=== PATIENT | male | born 1955 | race Caucasian/White ===

== ENCOUNTER → 2017-12-16 | Outpatient (CLI) | payer BC, OTHER ==
[~2017-12-16] MED LIST: CIPRO500 MG PO; CYMBALTA60 MG PO; FLAGYL500 MG PO; PROTONIX40 M1 PO; XARELTO20 MG PO; ZOLOFT25 MG PO
== END ==
LOC: M.CT 09:50
DX: K40.90 Unilateral inguinal hernia, without obstruction or gangrene, not specified as recurrent (principal); K57.30 Diverticulosis of large intestine without perforation or abscess without bleeding; K76.0 Fatty (change of) liver, not elsewhere classified; M47.896 Other spondylosis, lumbar region; Z86.711 Personal history of pulmonary embolism

== ENCOUNTER → 2018-04-27 | Outpatient (CLI) | payer MEDICARE, OTHER ==
[2018-04-27 09:06] LABS: ALBUMIN 3.6 g/dL (3.4-5.0); DIRECT BILIRUBIN 0.1 mg/dL (<0.1-0.3); TOTAL BILIRUBIN 0.4 mg/dL (<0.1-1.0); TOTAL PROTEIN 7.3 g/dL (6.4-8.2)
== END ==
LOC: M.ULTRA 07:57
PROVIDERS: Nurse Practitioner Adult Health
DX: D73.89 Other diseases of spleen (principal); R74.8 Abnormal levels of other serum enzymes; Z90.49 Acquired absence of other specified parts of digestive tract

== ENCOUNTER 2018-07-29 14:51 | Emergency (ER) | payer MEDICARE, OTHER ==
[~2018-07-29] VITALS: Ht 188 cm; Wt 99.8 kg
[2018-07-29 15:44] LABS: ABSOLUTE BASOPHILS 0.1 thou/uL (0.0-0.2); ABSOLUTE EOSINOPHILS 0.1 thou/uL (0.0-0.7); ABSOLUTE LYMPHOCYTES 1.3 thou/uL (0.8-5.3); ABSOLUTE MONOCYTES 0.5 thou/uL (0.0-1.2); BASOPHILS 0.9 %; EOSINOPHILS 1.5 %; HEMATOCRIT 41.8 % (42.0-52.0); HEMOGLOBIN 14.3 gm/dL (14.0-18.0); LYMPHOCYTES 22.4 %; MCH 32.1 pg (26.0-34.0); MCHC 34.2 g/dL (28.0-37.0); MCV 93.7 fL (80.0-100.0); MONOCYTES 8.2 %; NUCLEATED RBCS 0 /100WBC; PLATELET COUNT* 218 thou/uL (150-400); RBC 4.46 mil/uL (4.50-6.00); RDW-CV 13.1 % (10.5-14.5); WBC 5.9 thou/uL (4.0-11.0)
[2018-07-29 15:51] LABS: ANION GAP 7 mmol/L (7-16); BUN 18 mg/dL (7-18); CALCIUM 8.8 mg/dL (8.5-10.1); CHLORIDE 106 mmol/L (98-107); CO2 29 mmol/L (21-32); CREATININE 1.3 mg/dL (0.6-1.3); GLUCOSE 132 mg/dL (70-99); POTASSIUM 3.9 mmol/L (3.5-5.1); SODIUM 142 mmol/L (136-145)
[2018-07-29 15:54] LABS: INR 1.2; PROTIME 11.8 Seconds (9.20-11.50)
[2018-07-29 16:02] LABS: ALBUMIN 3.5 g/dL (3.4-5.0); ALKALINE PHOSPHATASE 142 U/L (46-116); LIPASE 112 U/L (73-393); NT-PRO BRAIN NAT PEPTIDE 139 pg/mL (<300); SGOT 28 U/L (15-37); SGPT 45 U/L (30-65); TOTAL BILIRUBIN 0.5 mg/dL (<0.1-1.0); TOTAL PROTEIN 7.2 g/dL (6.4-8.2); TROPONIN-I LEVEL <0.06 ng/mL (<0.06)
[2018-07-29 19:42] VITALS: BP 154/86
--- NOTE | 2018-07-30 13:43 | EKG ---
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
== END 2018-07-29 19:43 | disposition home or self-care (01) ==
LOC: M.ERS 14:51
PROVIDERS: Personal Emergency Response Attendant
DX: R07.89 Other chest pain (principal); Z86.718 Personal history of other venous thrombosis and embolism; Z86.711 Personal history of pulmonary embolism; Z90.49 Acquired absence of other specified parts of digestive tract

== ENCOUNTER → 2018-12-15 | Outpatient (CLI) | payer MEDICARE, OTHER ==
[~2018-12-15] MED LIST changes: +CYMBALTA20 MG PO
--- NOTE | 2018-12-25 00:36 | SLEEP ---
[facility] [address] [place] [address] SLEEP STUDY REPORT Name: DARIONGENNARO SIDHU [id number] Admission: 12/15/18 Attend Phys: Sanjeev Riddle Discharge: Date of : 51 Report #: [id number] THIS REPORT FOR: //name// CC: Sumanth Comer DO This study has been reviewed in its entirety by a board certified sleep specialist DATE OF SERVICE: 12/15/2018 HOME SLEEP STUDY ATTENDING PHYSICIAN: Dr. Sumanth Comer. The patient is 63 years old who weighs 215 pounds with a BMI of 30.8. The patient's Onaka score was unknown. The patient underwent home sleep study performed at [facility]. Total recording time was 574 minutes. During the night study, the patient had 21 obstructive apneas, no mixed or central apneas and 236 hypopneas. The patient's apnea hypopnea index was 26.8 per hour. Supine sleep was not recorded. Nocturnal oximetry study revealed an average oxygen saturation of 93% and the lowest of 81%. 9 minutes were spent in an oxygen saturation of less than 90%. Mean heart rate 53 beats per minute with a maximum 83 beats per minute. IMPRESSION: 1. Moderate sleep apnea-hypopnea syndrome at an AHI of 26.8 per hour. 2. Nocturnal hypoxia secondary to obstructive sleep apnea. RECOMMENDATIONS: 1. The patient would benefit from treatment of sleep apnea with CPAP. This can be done as an AutoPAP home titration study versus an in-lab titration study. 2. Once the patient is optimally treated, then follow up in 4-6 weeks to assess compliance with treatment and to document clinical improvement. 3. Weight loss is strongly advised. 4. Avoid PUNCH OPERATOR depressants. 5. Cautioned regarding driving until symptoms of sleep apnea resolve with the use of CPAP. <ELECTRONICALLY SIGNED> By: lBue Hoyos MD 12/25/18 0036 2250 [id number] Hoyos MD /nt
== END ==
LOC: M.SLEEPLAB 08:54
DX: G47.33 Obstructive sleep apnea (adult) (pediatric) (principal); R09.02 Hypoxemia

== ENCOUNTER 2018-12-18 09:26 | Emergency (ER) | payer MEDICARE, OTHER ==
[~2018-12-18] VITALS: Ht 182.9 cm; Wt 98.4 kg
[~2018-12-18 09:26] MED LIST changes: -CYMBALTA20 MG PO
[2018-12-18] MEDS ORDERED: CYMBALTA20 MG PO (09:34)
[2018-12-18 09:45] LABS: ABSOLUTE BASOPHILS 0.1 thou/uL (0.0-0.2); ABSOLUTE EOSINOPHILS 0.1 thou/uL (0.0-0.7); ABSOLUTE LYMPHOCYTES 1.5 thou/uL (0.8-5.3); ABSOLUTE MONOCYTES 0.7 thou/uL (0.0-1.2); ABSOLUTE NEUTROPHILS 4.9 thou/uL (1.6-8.1); BASOPHILS 1.2 %; EOSINOPHILS 1.6 %; HEMATOCRIT 45.6 % (42.0-52.0); HEMOGLOBIN 15.3 gm/dL (14.0-18.0); LYMPHOCYTES 20.7 %; MCH 31.5 pg (26.0-34.0); MCHC 33.7 g/dL (28.0-37.0); MCV 93.6 fL (80.0-100.0); MONOCYTES 9.9 %; MPV 8.8 fl. (7.2-11.1); NUCLEATED RBCS 0 /100WBC; PLATELET COUNT* 232 thou/uL (150-400); POLYS 66.6 %; RBC 4.87 mil/uL (4.50-6.00); RDW-CV 13.6 % (10.5-14.5); WBC 7.4 thou/uL (4.0-11.0)
[2018-12-18 09:54] LABS: ANION GAP 8 mmol/L (7-16); BUN 18 mg/dL (7-18); CALCIUM 8.7 mg/dL (8.5-10.1); CHLORIDE 104 mmol/L (98-107); CO2 29 mmol/L (21-32); CREATININE 1.1 mg/dL (0.6-1.3); GLUCOSE 104 mg/dL (70-99); POTASSIUM 4.2 mmol/L (3.5-5.1); SODIUM 141 mmol/L (136-145)
[2018-12-18 10:07] LABS: ALBUMIN 3.7 g/dL (3.4-5.0); ALKALINE PHOSPHATASE 168 U/L (46-116); CK-MB MASS 1.3 ng/mL (<0.5-3.6); LIPASE 70 U/L (73-393); NT-PRO BRAIN NAT PEPTIDE 86 pg/mL (<300); SGOT 28 U/L (15-37); SGPT 42 U/L (30-65); TOTAL BILIRUBIN 0.5 mg/dL (<0.1-1.0); TOTAL PROTEIN 7.5 g/dL (6.4-8.2); TROPONIN-I LEVEL <0.06 ng/mL (<0.06)
[2018-12-18 10:50] LABS: APTT 29.3 Seconds (25.0-31.3); INR 1.1
--- NOTE | 2018-12-18 12:52 | EXE ---
[place] [address] STRESS ECHOCARDIOGRAM Name: GENNARO ORLANDO Room: [facility]#: [id number] Admission: 12/18/18 Attend Phys: Discharge: Date of : 51 Date of Service: 12/18/18 1252 Report #: [id number] THIS REPORT FOR: //name// APPROVED REPORT Study performed: 12/18/2018 11:10:03 Exam: Stress Echocardiogram Indication: Chest pain , Dizziness Patient Location: ER Stress Nurse: Trudy Hewitt RN Supervising Physician: Chapin Lopez MD Status: routine Ht: 6 ft 0 in HR: 52 bpm BP: 132/89 mmHg Rhythm: NSR Medical History Medical History: DVT, PE, Headaches, Bradycardia, Dizziness Medications: ASA, Xarelto Allergies: No known drug allergies Cardiac Risk Factors: Age, PVD Procedure The patient underwent an Exercise Stress Test using the Ruben Protocol. Blood pressure, heart rate, and EKG were monitored. An Echocardiogram was performed by alternative energy technician in four stages in quad fashion. At peak stress, four selected images were obtained and placed side by side with resting images for comparison. Stress Test Details Stress Test: Exercise stress testing was performed using a Ruben protocol. HR Resting HR: 52 bpm Max Heart Rate (APMHR): 155 bpm Max HR Achieved: 145 bpm Target HR (85% APMHR): 131 bpm % of APMHR: 93 Recovery HR: 77 bpm HR response to stress: Normal HR response to stress BP Resting BP: 132/89 mmHg Max BP: +193/59 [place] [address] STRESS ECHOCARDIOGRAM Name: GENNARO ORLANDO Room: [facility]#: [id number] Admission: 12/18/18 Attend Phys: Discharge: Date of : 51 Date of Service: 12/18/18 1252 Report #: [id number] Recovery BP: 153/61 mmHg BP response to stress: Normal blood pressure response to stress. ECG Resting ECG: Sinus Rhythm Stress ECG: Sinus Rhythm, nonspecific ST-T abnormalities ST Change: Upsloping ST depression Maximum ST Deviation: 0.5 mm Arrhythmia: APC's Recovery ECG: Sinus Rhythm Recovery ST Change: Normal Recovery ST Deviation: 0 mm Recovery Arrhythmia: None Clinical Reason for Termination: Maximal effort Stress Symptoms: none Exercise duration: 8 min sec Highest Stage Achieved: Stage 3: 3.4 mph at 14% grade. Exercise capacity: 10.14 METs Pre-Stress Echo The resting Echocardiogram showed normal left ventricular contractility with an estimated Ejection Fraction of about 55-60%. There is mild mitral and mild aortic regurgitation and trace tricusipd regurgitation. Post-Stress Echo The stress Echocardiogram showed normal left ventricular contractility with an estimated Ejection Fraction of about >70%. Conclusion Clinical Response: Non-ischemic Exercise Capacity: Average Stress ECG Response: Equivocal Stress Echo Images: Non-ischemic low risk stress echo for predicting future cardiac events Other Information Study Quality: [place] [address] STRESS ECHOCARDIOGRAM Name: GENNARO ORLANDOEST Room: [facility] Mary#: [id number] Admission: 12/18/18 Attend Phys: Discharge: Date of : 51 Date of Service: 12/18/18 1252 Report #: [id number] <Conclusion> low risk stress echo for predicting future cardiac events <ELECTRONICALLY SIGNED> By: Chapin Lopez MD, [facility] 12/18/18 1252 51 51 Chapin Lopez MD, FACC /INF
[2018-12-18 13:00] VITALS: BP 140/90
--- NOTE | 2018-12-18 15:21 | EKG ---
[place] [address] ELECTROCARDIOGRAM REPORT Name: GENNARO ORLANDO [id number] Admission: 12/18/18 Attend Phys: Discharge: 12/18/18 Date of : 51 Report #: [id number] THIS REPORT FOR: //name// [facility] ED Test Date: 2018-12-18 Test Time: 09:30:01 Pat Name: GENNARO ORLANDO Department: Room: Gender: M Arcade Technician: CARLEEN : 1955 Requested By: Bladimir Gamez Order Number: [id number] MD: Chapin Lopez Measurements Intervals [place] Rate: 52 P: 29 [place]: 155 QRS: -7 QRSD: 90 T: 11 QT: 432 QTc: 402 Interpretive Statements Sinus bradycardia Compared to ECG 07/29/2018 14:57:38 rate slowed Electronically Signed On 12-18-2018 15:21:30 CDT by Chapin Lopez [email or web address] <ELECTRONICALLY SIGNED> By: Chapin Lopez MD, [facility] 12/18/18 1521 0930 9 Chapin Lopez MD, FACC /EPI
== END 2018-12-18 13:01 | disposition home or self-care (01) ==
LOC: M.ERS 09:26
PROVIDERS: Family Medicine
DX: R07.2 Precordial pain (principal); Z86.718 Personal history of other venous thrombosis and embolism; Z90.49 Acquired absence of other specified parts of digestive tract

== ENCOUNTER → 2019-01-05 | Outpatient (CLI) | payer MEDICARE, OTHER ==
[~2019-01-05] VITALS: Ht 180.3 cm; Wt 98.0 kg
[2019-01-05] VITALS (8 sets, daily range): BP systolic 125–143; BP diastolic 70–83
[~2019-01-05] MED LIST changes: +CENTRUM SILVER1 EAC4; +CYMBALTA30 MG; +PREDNISONE 10 M10 M1
[2019-01-05 10:47] LABS: HEMOGLOBIN 15.2 gm/dL (14.0-18.0); MCH 31.8 pg (26.0-34.0); MCHC 33.8 g/dL (28.0-37.0); MCV 93.9 fL (80.0-100.0); MPV 8.9 fl. (7.2-11.1); RBC 4.79 mil/uL (4.50-6.00); WBC 8.9 thou/uL (4.0-11.0)
[2019-01-05 10:57] LABS: ANION GAP 11 mmol/L (7-16); APTT 23.5 Seconds (25.0-31.3); BUN 22 mg/dL (7-18); CALCIUM 8.8 mg/dL (8.5-10.1); CHLORIDE 107 mmol/L (98-107); CO2 27 mmol/L (21-32); CREATININE 1.2 mg/dL (0.6-1.3); GLUCOSE 97 mg/dL (70-99); POTASSIUM 4.2 mmol/L (3.5-5.1); SODIUM 145 mmol/L (136-145)
[2019-01-05 11:08] LABS: ALBUMIN 3.3 g/dL (3.4-5.0); ALKALINE PHOSPHATASE 163 U/L (46-116); CHOLESTEROL 166 mg/dL (<200); HDL CHOLESTEROL 54 mg/dL (>40); LDL CHOLESTEROL 99 mg/dL (<100); SGOT 23 U/L (15-37); SGPT 50 U/L (30-65); TC:HDL 3.1 Ratio (Not establshd); TOTAL BILIRUBIN 0.7 mg/dL (<0.1-1.0); TOTAL PROTEIN 6.9 g/dL (6.4-8.2); TRIGLYCERIDE 66 mg/dL (<150); VLDL 13 mg/dL (<40)
[2019-01-05 11:22] LABS: SERUM ASSESSMENT Clear
[2019-01-05 13:07] LABS: BE 0.4 mmol/L (-2 to +3); PCO2 39.4 mmHg (35.0-45.0); PO2 72.4 mmHg (75.0-100.0); pH 7.417 (7.340-7.450)
--- NOTE | 2019-01-05 15:45 | EKG ---
[place] [address] ELECTROCARDIOGRAM REPORT Name: GENNARO ORLANDO Room: [facility]#: [id number] Admission: 01/05/19 Attend Phys: Mark Vasquez MD Discharge: Date of : 51 Report #: [id number] THIS REPORT FOR: //name// [facility] Test Date: 2019-01-05 Test Time: 10:39:33 Pat Name: GENNARO ORLANDO Department: Room: Gender: M Chief Power Dispatcher: : 1955 Requested By: Mark Vasquez Order Number: [id number] MD: Mark Vasquez Measurements Intervals [place] Rate: 57 P: 21 [place]: 141 QRS: -5 QRSD: 86 T: 4 QT: 421 QTc: 410 Interpretive Statements Sinus rhythm Compared to ECG 12/18/2018 09:30:01 Sinus bradycardia no longer present Electronically Signed On 01-05-2019 15:45:19 CDT by Mark Vasquez [email or web address] <ELECTRONICALLY SIGNED> By: Mark Vasquez MD, [facility] 01/05/19 1545 1039 1039 Mark Vasquez MD, FACC /EPI
--- NOTE | 2019-01-05 15:54 | CARD ---
[address] [address] CARDIAC CATH REPORT Name: GENNARO ORLANDO [id number] Admission: 01/05/19 Attend Phys: Mark Vasquez MD Discharge: Date of : 51 Report #: [id number] THIS REPORT FOR: //name// APPROVED REPORT Study performed: 01/05/2019 11:15:40 Patient Details Patient Status: Out-Patient Room #: The patient is a 63 year-old male Event Personnel Mark Vasquez Kennel Operator, Taylor Patino RN Mirror Painter, Ge Parson (R) Monitor, Miguel Angel Chavira COMMERCIAL ACCOUNT OFFICER Scrub Procedures Performed Right and Left Heart Cath w/or w/o Coronarie Procedure Narrative The right femoral was infiltrated with 1% Lidocaine subcutaneous anesthesia. A Right Heart Catheterization was performed with a 6 Fr. [place] catheter and pressure were recorded. A [place] 6 FR sheath was inserted into the right femoral artery. Coronary angiography was performed using coronary diagnostic catheters. The right coronary system was accessed and visualized with a Diagnostic JR4 catheter. The left coronary system was accessed and visualized with a Diagnostic JL4 catheter. The left ventricle was accessed and visualized with a Diagnostic Straight Pigtail catheter. Left ventricular/Aortic Valve gradient assessed via catheter pullback. Closure device was deployed with a Fr MynxGrip 6/7F. The patient tolerated the procedure well and there were no complications associated with the procedure. Intraoperative Conscious Sedation Sedation start time: 12:34 Case end Time: 1300 Fentanyl 50 mcg Versed 2 mg Fluoro Time: 2.3 minutes Dose: DAP 77505 cGycm2 697 mGy Contrast Type and Amount: Omnipaque 100 ml Coronary Angiography The patient's coronary [place] [address] CARDIAC CATH REPORT Name: GENNARO ORLANDO Room: [facility]#: [id number] Admission: 01/05/19 Attend Phys: Mark Vasquez MD Discharge: Date of : 51 Report #: [id number] Diagnostic Cath Left Main The left main is normal and bifurcates into a left anterior descending and circumflex coronary artery. LAD The left anterior descending coronary artery is normal in its proximal mid and distal portion. Diagonal 1 Normal large and branched. Diagonal 2 Normal large and branched. Circumflex Normal in the proximal mid and distal portion. OM1 Normal and moderate in caliber. OM2 Normal large and branched. Right Coronary Normal proximal mid and distal portion. R PDA Normal. RPLV Normal. Left Ventriculography The left ventricle is normal in size with normal contractility. The left ventricular ejection fraction is estimated to be 60-65%. Hemodynamics The right atrial mean pressure is 3 mmHg. The right ventricular pressure is 29/1 mmHg. The pulmonary artery pressure is 24/9 mmHg with a mean of 15 mmHg. The mean pulmonary capillary wedge pressure is 5 mmHg. The aortic pressure is 117/65 mmHg with a mean of 88 mmHg. The left ventricular pressure is 131/6 mmHg with a mean of mmHg. The left ventricular end diastolic pressure is 15 mmHg. The cardiac output using thermo method is 5.23 L/min. The cardiac index using thermo method is 2.40 L/min/m2. There was no O2 sat on an right heart O2 sat duration 1. Conclusion 1. Normal coronary arteries. 2. Normal left ventricular systolic function. 3. Normal left ventricular end-diastolic pressure. 4. Normal right heart pressures. 5. Normal cardiac output by the thermodilution technique. 6. Normal O2 saturation run. Recommendations Continue current medical management. <ELECTRONICALLY SIGNED> By: Mark Vasquez MD, FACC 01/05/19 1553 1553 1553[facility] Center[facility]ly Vasquez MD, FACC /INF
== END | disposition home or self-care (01) ==
LOC: M.CL 09:48
PROVIDERS: Internal Medicine Cardiovascular Disease
DX: R07.9 Chest pain, unspecified (principal); R06.02 Shortness of breath; Z98.890 Other specified postprocedural states; Z90.49 Acquired absence of other specified parts of digestive tract; Z86.718 Personal history of other venous thrombosis and embolism; Z86.711 Personal history of pulmonary embolism; Z79.01 Long term (current) use of anticoagulants; Z79.899 Other long term (current) drug therapy

== ENCOUNTER → 2019-02-11 | Outpatient (CLI) | payer MEDICARE, OTHER | LOC: M.SLEEPLAB 20:52 | DX: G47.33 Obstructive sleep apnea (adult) (pediatric) (principal) ==

== ENCOUNTER → 2019-07-30 | Outpatient (CLI) | payer MEDICARE, OTHER | LOC: M.ULTRA 07:45 | DX: K76.0 Fatty (change of) liver, not elsewhere classified (principal); K21.9 Gastro-esophageal reflux disease without esophagitis; F32.9 Major depressive disorder, single episode, unspecified ==

== ENCOUNTER 2020-01-24 09:31 | Emergency (ER) | payer MEDICARE, OTHER ==
[~2020-01-24] VITALS: Ht 182.9 cm; Wt 99.8 kg
[2020-01-24] MEDS ORDERED: LIPITOR 20 MG T20 M1 PO (09:43)
[2020-01-24 11:04] LABS: URINE BILIRUBIN NEGATIVE (Negative); URINE BLOOD 2+ (Negative); URINE CLARITY CLEAR; URINE COLOR YELLOW; URINE GLUCOSE-RANDOM NEGATIVE (Negative); URINE KETONES NEGATIVE (Negative); URINE LEUKOCYTES 1+ (Negative); URINE NITRITE NEGATIVE (Negative); URINE PROTEIN NEGATIVE (Negative); URINE SPECIFIC GRAVITY 1.025 (1.005-1.030); URINE UROBILINOGEN 0.2 E.U./dl (0.2-1.0)
[2020-01-24] MEDS ORDERED: KEFLEX500 M1 PO (11:13)
[2020-01-24 11:16] LABS: BACTERIA 1-9 Few /HPF (None Seen); CASTS None Seen /LPF (None Seen); CRYSTALS None Seen /LPF (None Seen); MUCUS 0-3 Light strn/LPF (None Seen); SQUAMOUS 0-3 Few /LPF (0-3); URINE RBC 0-2 Rare /HPF (0-2); URINE WBC 6-15 Few /HPF (0-5)
[2020-01-24 11:26] VITALS: BP 145/85
== END 2020-01-24 11:26 | disposition home or self-care (01) ==
LOC: M.ERS 09:31
PROVIDERS: Emergency Medicine
DX: Z46.6 Encounter for fitting and adjustment of urinary device (principal); N39.0 Urinary tract infection, site not specified; R33.9 Retention of urine, unspecified; Z86.718 Personal history of other venous thrombosis and embolism; Z90.49 Acquired absence of other specified parts of digestive tract; Z86.711 Personal history of pulmonary embolism